=== PATIENT | female | born 1950 | race Caucasian/White ===

== ENCOUNTER → 2020-12-21 11:37 | Outpatient (CLI) | payer MEDICARE, OTHER, SELFPAY ==
--- NOTE | 2020-12-21 11:40 | DI.RAD.S_ITS ---
PROCEDURE: XR FINGER RT MIN 2V INDICATIONS: right 5th finger injury TECHNIQUE: AP hand, 2 views of the pinky finger(s) acquired. COMPARISON: None. FINDINGS: Overlying metal braces obscure the distal forearm and proximal carpus. Bones: No acute appearing fracture or traumatic malalignment. A small corticated ossific body along the dorsal aspect of the 5th proximal interphalangeal joint may reflect sequela of remote avulsive trauma or an osteophyte fragment. No suspicious bony lesions. Joint space narrowing of the 1st carpometacarpal joint, 1st interphalangeal joint, and the 2nd through 5th distal interphalangeal joints. Soft tissues: No suspicious soft tissue calcifications. IMPRESSION: No acute bony abnormality. Degenerative changes of the hand. Dictated by: Marbin Bach M.D. on 12/21/2020 at 11:07 Approved by: Marbin Bach M.D. on 12/21/2020 at 11:10
== END ==
PROVIDERS: Referring Provider Physician Assistant; Visit Provider Physician Assistant
DX: S69.91XA Unspecified injury of right wrist, hand and finger(s), initial encounter (principal); X58.XXXA Exposure to other specified factors, initial encounter
CPT/HCPCS: 73140

== ENCOUNTER 2021-09-10 14:16 | Emergency (ER) | payer MEDICARE, OTHER, SELFPAY ==
[2021-09-10 14:30] VITALS: BP 185/96; PULSE 66; RESP 20; TEMP 36.6; O2SAT 99
--- NOTE | 2021-09-10 14:34 | DI.RAD.S_ITS ---
PROCEDURE: XR RIBS LT MIN 3V W CXR1V INDICATIONS: fall TECHNIQUE: 2 views of the left ribs were acquired, along with a single view chest. COMPARISON: None. FINDINGS: Surgical changes and devices: None. Bones and chest wall: Mildly displaced left anterolateral 9th and 10th rib fractures. No suspicious bony lesions. Overlying soft tissues appear unremarkable. Lungs and pleura: No pleural effusions or pneumothorax. Lungs appear clear. Mediastinum: Mediastinal contours appear normal. Heart size is normal. IMPRESSION: Left rib fractures. No acute cardiopulmonary process. Dictated by: Colt Anguiano M.D. on 09/10/2021 at 14:57 Approved by: Colt Anguiano M.D. on 09/10/2021 at 14:58
--- NOTE | 2021-09-10 15:51 | ED_ITS ---
HPI - General Adult General Chief complaint: Trauma Stated complaint: Left sided rib pain from fall x3days Time Seen by Provider: 09/10/21 15:51 Source: patient Mode of arrival: Ambulatory History of Present Illness HPI narrative: 70-year-old woman with a history of hypothyroidism who fell on Wednesday, 3 days ago, landing on the stairs with the posterior portion of her left ribs. She had immediate pain but has been doing well in the interval. She actually flew across the country yesterday and is currently visiting her son here in town. She is having increasing pain and 800 mg of ibuprofen is no longer effective in controlling the pain. She was worried that there was perhaps more injury or other issues in comes in for further evaluation. She does not describe palpitations, fevers, dyspnea beyond that associated when she has acute pain, no spine pain, abdominal pain, constipation, hematuria, flank pain, dysuria. No acute neurologic changes. Related Data Home Medications Medication Instructions Recorded Confirmed levothyroxine 25 mcg tablet 25 mcg PO DAILY 12/21/20 12/21/20 (Synthroid) Previous Rx's Medication Instructions Recorded oxycodone-acetaminophen 5 mg-325 1 tab PO Q6H PRN #14 tab 09/10/21 mg tablet Allergies Allergy/AdvReac Type Severity Reaction Status Date / Time codeine Allergy Verified 09/10/21 16:14 Sulfa (Sulfonamide Allergy Verified 09/10/21 16:14 Antibiotics) Review of Systems Review of Systems Narrative: Remainder of complete review of systems is otherwise unremarkable except for that included in the HPI. Patient History Medical History (Updated 09/10/21 @ 16:19 by Anne Marie Ordonez MD) Hypothyroidism (acquired) Social History Smoking Status: Former smoker Smoking Status: Former smoker Exam Narrative Exam Narrative: General: Healthy appearing, in mild distress due to pain. Able to give a complete and coherent history. Well-nourished well-developed HEENT: Moist mucous membranes, normal sclera with reactive pupils, Respiratory: Lungs are clear to auscultation, no wheezing no rales no rhonchi. Full and symmetrical air movement Chest: He tenderness along lower ribs left side posterior axillary line. She has quite a bit of bruising posteriorly between the 9th and 10th ribs with minor abrasion. There is some minor abrasion over the lumbar spine. She has no tenderness to palpation along the cervical, thoracic or lumbar spine. Cardiac: Regular rate and rhythm no murmurs no bruits Abdomen: Soft, nontender, good bowel tones, no flank pain Skin: Warm and dry, no rashes be on the abrasions and contusions mentioned above Neurologic: Grossly neurologically intact with no obvious asymmetries or abnormalities Extremities: No trauma, well perfused, she is able to walk with minimal difficulty Psych: Cooperative, appropriate insight and affect Initial Vital Signs Initial Vital Signs: Vital Signs Temperature 97.8 F 09/10/21 14:30 Pulse Rate 66 09/10/21 14:30 Respiratory Rate 20 09/10/21 14:30 Blood Pressure 185/96 H 09/10/21 14:30 Pulse Oximetry 99 09/10/21 14:30 Course Orders Ordered: ED Orders 09/10/21 14:34 XR ribs LT min 3V w CXR1V Stat Vital Signs Vital signs: Vital Signs - 8 hr 09/10/21 14:30 Temperature 97.8 F Pulse Rate 66 Respiratory Rate 20 Blood Pressure 185/96 H Pulse Oximetry 99 Medical Decision Making Imaging Data Chest x-ray with rib films: Radiologist's Impression: FINDINGS:? ? Surgical changes and devices:? None.? ? Bones and chest wall:? Mildly displaced left anterolateral 9th and 10th rib fractures.? No suspicious bony lesions.? Overlying soft tissues appear unremarkable.? ? Lungs and pleura:? No pleural effusions or pneumothorax.? Lungs appear clear.? ? Mediastinum:? Mediastinal contours appear normal.? Heart size is normal.? ? IMPRESSION:? Left rib fractures.? No acute cardiopulmonary process.? ? ? Dictated by: Colt Anguiano M.D. on 09/10/2021 at 14:57? ?? [facility] Narrative Medical decision making narrative: 70-year-old woman with a fall 4 days ago landing on left posterior ribs with simple rib fractures to left side posterior ribs 9 and 10. No associated pneumothorax or hemothorax. No pulmonary contusion is obvious. She does have significant bruising to that area which she had not noticed previously and likely explains why she is having more pain today. I suspect that the cross- country plane trip yesterday exacerbated her symptoms somewhat. She is having no symptoms of acute coronary syndrome or pulmonary embolism. We talked about using narcotic for pain control with rib fractures, importance of incentive spirometry and return is symptoms worsen. Questions were answered. She is safe for home discharge Discharge Plan Departure Patient Disposition: Home Clinical Impression: Fall down stairs Fracture, ribs Qualifiers: Encounter type: initial encounter Fracture type: closed Laterality: left Qualified Code(s): S22.42XA - Multiple fractures of ribs, left side, initial encounter for closed fracture Instructions: DI for Rib Fracture Activity Restrictions/Additional Instructions: Thank you for coming in today You did break 2 ribs with your fall 4 days ago. Fortunately you do not have a collapsed lung or blood leaking in to your chest cavity. There is no evidence of compression fractures along your spine or other internal injury. It is common for rib fractures to h hurt more over the 1st number of days. I suspect that you irritated the fractures with your cross-country plane trip yesterday and that may have caused a slight increase in bleeding which is why receiving the bruising so obviously today. This would also explain wire hurting more today than yesterday. All of this is still with in completely normal limits for healing after rib fractures. Please make sure you are using the incentive spirometer with 2 or 3 big breaths and our to avoid allowing your lung to collapse and putting herself at risk for developing pneumonia Using 400 mg of ibuprofen (2 [id number] pills) and 1 Tylenol every 6 hours can be very helpful in controlling pain. For severe pain using 400 mg of ibuprofen and 1 Percocet will be helpful. Percocet is a narcotic and needs to be used sparingly. Severe pain from rib fractures is a very appropriate use for this. It can cause constipation so I encourage you to use full cap full, 17 g, of MiraLax/polyethylene glycol every day that you take a Percocet. Prevent constipation can make a huge difference in seeing comfortable and treating pain. The pain pill [facility] If you have new or worsening symptoms, you need to return to the emergency department I hope the rest of your visit goes well Prescriptions: New oxycodone-acetaminophen 5-325 mg tablet 1 tab PO Q6H PRN (Reason: pain) Qty: 14 0RF No Action levothyroxine [Synthroid] 25 mcg tablet 25 mcg PO DAILY 0RF Referrals: Miscellaneous,Doctor, MD [Primary Care Provider] -
[2021-09-10] MEDS: IBUPROFEN 400 MG TABLET PO (16:14)
[2021-09-10] MEDS: OXYCODONE/ACETAMINOPHEN 5/325 TABLET 1 TAB PO (16:14)
[2021-09-10 16:40] VITALS: BP 166/76; PULSE 78; RESP 17; O2SAT 98
== END 2021-09-10 16:42 | disposition home or self-care (01) ==
PROVIDERS: Emergency Provider Emergency Medicine
DX: S22.42XA Multiple fractures of ribs, left side, initial encounter for closed fracture (principal); Z87.891 Personal history of nicotine dependence; Z88.5 Allergy status to narcotic agent; W19.XXXA Unspecified fall, initial encounter
CPT/HCPCS: 71101; 99283

== ENCOUNTER → 2022-03-11 13:00 | Outpatient (CLI) | payer MEDICARE, OTHER, SELFPAY ==
--- NOTE | 2022-03-11 | DI.MRI.S_ITS ---
PROCEDURE: MR HUMERUS RT WO CON INDICATIONS: Strain of muscle, fascia and tendon of triceps, TECHNIQUE: Noncontrast coronal and sagittal T1 spin echo and STIR; axial T1 spin echo and T2 fast spin echo with fat saturation through the right upper arm. COMPARISON: None. FINDINGS: Image quality: Excellent. Bones: Mild to moderate glenohumeral joint osteoarthritic changes are seen. Moderate acromioclavicular joint osteoarthritic changes also noted. There is no marrow edema. No fracture or dislocation. No suspicious intraosseous lesion. Nmoi-ri-zxwytfjy elbow joint osteoarthritic changes also seen with joint space narrowing and subchondral sclerosis. Soft tissues: The scanned muscles demonstrate normal overall bulk and internal signal. Mildly thickened distal triceps tendon at its insertion on posterior proximal olecranon is seen with small amount of surrounding soft tissue edema suggestive of tendinosis and low-grade partial-thickness tear. No triceps muscle signal abnormality is seen. Subcutaneous tissues appear normal as well. No soft tissue masses are present. IMPRESSION: 1. Distal triceps tendinosis and possible low-grade partial-thickness tear at its proximal olecranon insertion. No full-thickness tendon rupture. No triceps muscle signal abnormality is seen. Rest of the tendons and muscles of right upper arm or grossly intact. 2. 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 No fracture or dislocation. No suspicious intraosseous lesion. Dictated by: Jem Berg M.D. on 03/11/2022 at 14:41 Approved by: Jem Berg M.D. on 03/11/2022 at 16:45
== END ==
PROVIDERS: Referring Provider Orthopaedic Surgery; Visit Provider Orthopaedic Surgery
DX: S46.311A Strain of muscle, fascia and tendon of triceps, right arm, initial encounter (principal); M19.011 Primary osteoarthritis, right shoulder
CPT/HCPCS: 73218

== ENCOUNTER → 2022-03-24 07:28 | Outpatient (CLI) | payer MEDICARE, OTHER, SELFPAY ==
[2022-03-24 08:32] LABS: Add Manual Diff / Slide Review NO; Basophils Absolute Auto 0 /uL (0-100); Basophils Percent Auto 1.3 % (0-2); Eosinophils Absolute Auto 300 /uL (0-450); Eosinophils Percent Auto 7.8 % (2-4); Hematocrit 39.8 % (36-46); Hemoglobin 13.7 g/dL (12.0-16.0); Lymphocytes Absolute Auto 700 /uL (1100-4500); Lymphocytes Percent Auto 19.7 % (25-40); Mean Corpuscular HGB Conc 34.4 % (30-36); Mean Corpuscular Hemoglobin 30.3 PG (26-34); Mean Corpuscular Volume 88.3 fL (80-100); Monocytes Absolute Auto 500 /uL (0-900); Monocytes Percent Auto 13.4 % (3-14); Neutrophils Absolute Auto 2200 /uL (1500-7000); Neutrophils Percent Auto 57.8 % (50-75); Platelet Count 190 X10^3/uL (150-400); Red Cell Distribution Width 13.5 % (11.6-14.8); White Blood Cell Count 3.7 X10^3/uL (4.5-11.0)
[2022-03-24 09:13] LABS: Alanine Aminotransferase 22 IU/L (<35); Albumin Globulin Ratio 1.4 (1.0-2.8); Alkaline Phosphatase 63 U/L (38-126); Aspartate Aminotransferase 27 IU/L (14-36); BUN Creatinine Ratio 28.2 (6-22); Bilirubin Total 0.7 mg/dL (0.2-1.3); Blood Urea Nitrogen 20 mg/dL (7-17); Calcium 9.2 mg/dL (8.4-10.2); Carbon Dioxide 30 mmol/L (22-32); Chloride 102 mmol/L (98-107); Cholesterol 179 mg/dL (140-199); Estimated Glomerular Filt Rate > 60 mL/min (>60); Globulin 2.9 g/dL (1.7-4.1); Glucose 104 mg/dL (80-110); HDL Cholesterol 53 mg/dL (40-60); HEMOLYSIS < 15 (0-50); LDL Cholesterol Calculated 111 mg/dL (<100); Potassium 4.3 mmol/L (3.4-5.1); Sodium 137 mmol/L (137-145); Total Protein 6.9 g/dL (6.3-8.2); Triglycerides 74 mg/dL (35-150)
[2022-03-24 09:40] LABS: TSH w/ Reflex to FT4 1.25 uIU/mL (0.47-4.68)
== END ==
PROVIDERS: PCP Family Medicine; Referring Provider Family Medicine; Visit Provider Family Medicine
DX: E03.9 Hypothyroidism, unspecified (principal); Z86.19 Personal history of other infectious and parasitic diseases
CPT/HCPCS: 36415; 80053; 80061; 84443; 85025

== ENCOUNTER → 2022-08-17 06:58 | Outpatient (CLI) | payer MEDICARE, OTHER, SELFPAY ==
[2022-08-17 17:03] LABS: Hep C Virus Ab w/Reflex Quant NEGATIVE s/c (NEGATIVE)
== END ==
PROVIDERS: PCP Family Medicine; Referring Provider Family Medicine; Visit Provider Family Medicine
DX: D72.810 Lymphocytopenia (principal); E03.9 Hypothyroidism, unspecified; Z11.59 Encounter for screening for other viral diseases
CPT/HCPCS: 36415; 86803

== ENCOUNTER → 2022-12-20 12:12 | Outpatient (CLI) | payer MEDICARE, OTHER, SELFPAY ==
--- NOTE | 2022-12-20 12:14 | DI.RAD.S_ITS ---
PROCEDURE: XR CHEST 2V INDICATIONS: Cough TECHNIQUE: 2 views of the chest were acquired. COMPARISON: None. FINDINGS: Surgical changes and devices: None. Lungs and pleura: Lungs are clear. No pleural effusions or pneumothorax. Mediastinum: The cardiac contours are within normal limits. The aorta demonstrates calcification and tortuosity. Bones and chest wall: No suspicious bony abnormalities. Age-appropriate bony degenerative changes are seen. Soft tissues appear unremarkable. IMPRESSION: No focal infiltrates are seen. Dictated by: Keith Jarquin M.D. on 12/20/2022 at 11:38 Approved by: Keith Jarquin M.D. on 12/20/2022 at 11:38
== END ==
PROVIDERS: PCP Family Medicine; Referring Provider Physician Assistant; Visit Provider Physician Assistant
DX: R05.9 Cough, unspecified (principal)
CPT/HCPCS: 71046

== ENCOUNTER → 2022-12-23 07:49 | Outpatient (CLI) | payer MEDICARE, OTHER, SELFPAY ==
[2022-12-23 08:30] LABS: Add Manual Diff / Slide Review NO; Basophils Absolute Auto 100 /uL (0-100); Basophils Percent Auto 1.2 % (0-2); Eosinophils Absolute Auto 700 /uL (0-450); Eosinophils Percent Auto 11.8 % (2-4); Hematocrit 40.6 % (36-46); Hemoglobin 14.1 g/dL (12.0-16.0); Lymphocytes Absolute Auto 700 /uL (1100-4500); Mean Corpuscular HGB Conc 34.8 % (30-36); Mean Corpuscular Hemoglobin 30.7 PG (26-34); Mean Corpuscular Volume 88.3 fL (80-100); Monocytes Absolute Auto 700 /uL (0-900); Monocytes Percent Auto 12.8 % (3-14); Neutrophils Absolute Auto 3400 /uL (1500-7000); Neutrophils Percent Auto 61.2 % (50-75); Platelet Count 213 X10^3/uL (150-400); Red Cell Distribution Width 13.1 % (11.6-14.8); White Blood Cell Count 5.6 X10^3/uL (4.5-11.0)
[2022-12-23 09:28] LABS: Alanine Aminotransferase 20 IU/L (<35); Albumin 4.1 g/dL (3.5-5.0); Albumin Globulin Ratio 1.3 (1.0-2.8); Alkaline Phosphatase 69 U/L (38-126); Aspartate Aminotransferase 23 IU/L (14-36); BUN Creatinine Ratio 23.8 (6-22); Bilirubin Total 0.4 mg/dL (0.2-1.3); Blood Urea Nitrogen 19 mg/dL (7-17); Calcium 9.3 mg/dL (8.4-10.2); Carbon Dioxide 27 mmol/L (22-32); Chloride 95 mmol/L (98-107); Cholesterol 212 mg/dL (140-199); Estimated Glomerular Filt Rate > 60 mL/min (>60); Globulin 3.1 g/dL (1.7-4.1); Glucose 92 mg/dL (80-110); HDL Cholesterol 50 mg/dL (40-60); HEMOLYSIS < 15 (0-50); LDL Cholesterol Calculated 130 mg/dL (<100); Potassium 4.4 mmol/L (3.4-5.1); Sodium 130 mmol/L (137-145); Total Protein 7.2 g/dL (6.3-8.2); Triglycerides 161 mg/dL (35-150)
[2022-12-23 10:00] LABS: TSH w/ Reflex to FT4 5.47 uIU/mL (0.47-4.68)
[2022-12-23 10:06] LABS: Vitamin D 25 Hydroxy (D3) 36.8 ng/mL (30.0-100.0)
[2022-12-23 11:27] LABS: Free T4, Direct Thyroxine 1.24 ng/dL (0.78-2.19)
[2022-12-23 19:52] LABS: Creatinine Urine Random 136.4 mg/dL
[2022-12-23 19:56] LABS: Microalbumi Creatinin Ratio Ur 5.8 ug/mg CR (<30); Microalbumin Urine Random 0.8 mg/dL (0-1.6)
== END ==
PROVIDERS: PCP Family Medicine; Referring Provider Family Medicine; Visit Provider Family Medicine
DX: Z00.00 Encounter for general adult medical examination without abnormal findings (principal); E03.9 Hypothyroidism, unspecified; D72.810 Lymphocytopenia; E78.5 Hyperlipidemia, unspecified; D72.819 Decreased white blood cell count, unspecified; E78.2 Mixed hyperlipidemia
CPT/HCPCS: 36415; 80053; 80061; 82043; 82306; 82570; 84439; 84443; 85025

== ENCOUNTER → 2023-06-15 13:59 | Outpatient (CLI) | payer MEDICARE, OTHER, SELFPAY ==
[2023-06-15 15:38] LABS: TSH w/ Reflex to FT4 2.14 uIU/mL (0.47-4.68)
== END ==
PROVIDERS: PCP Family Medicine; Referring Provider Internal Medicine; Visit Provider Internal Medicine
DX: E03.9 Hypothyroidism, unspecified (principal)
CPT/HCPCS: 36415; 84443

== ENCOUNTER → 2023-10-14 06:59 | Outpatient (CLI) | payer MEDICARE, OTHER, SELFPAY ==
[2023-10-14 08:04] LABS: Add Manual Diff / Slide Review NO; Alanine Aminotransferase 20 IU/L (<35); Albumin 4.1 g/dL (3.5-5.0); Albumin Globulin Ratio 1.2 (1.0-2.8); Alkaline Phosphatase 54 U/L (38-126); Aspartate Aminotransferase 25 IU/L (14-36); BUN Creatinine Ratio 35.6 (6-22); Basophils Absolute Auto 100 /uL (0-100); Basophils Percent Auto 2.5 % (0-2); Bilirubin Total 0.7 mg/dL (0.2-1.3); Blood Urea Nitrogen 26 mg/dL (7-17); Calcium 9.5 mg/dL (8.4-10.2); Carbon Dioxide 26 mmol/L (22-32); Chloride 105 mmol/L (98-107); Cholesterol 255 mg/dL (140-199); Eosinophils Absolute Auto 400 /uL (0-450); Eosinophils Percent Auto 10.8 % (2-4); Estimated Glomerular Filt Rate > 60 mL/min (>60); Globulin 3.5 g/dL (1.7-4.1); Glucose 107 mg/dL (80-110); HDL Cholesterol 53 mg/dL (40-60); HEMOLYSIS < 15 (0-50); Hematocrit 41.7 % (36-46); Hemoglobin 14.6 g/dL (12.0-16.0); LDL Cholesterol Calculated 182 mg/dL (<100); Lymphocytes Absolute Auto 900 /uL (1100-4500); Lymphocytes Percent Auto 25.7 % (25-40); Mean Corpuscular HGB Conc 35.1 % (30-36); Mean Corpuscular Hemoglobin 31.1 PG (26-34); Mean Corpuscular Volume 88.7 fL (80-100); Monocytes Absolute Auto 400 /uL (0-900); Monocytes Percent Auto 12.5 % (3-14); Neutrophils Absolute Auto 1600 /uL (1500-7000); Neutrophils Percent Auto 48.5 % (50-75); Platelet Count 180 X10^3/uL (150-400); Potassium 4.2 mmol/L (3.4-5.1); Red Cell Distribution Width 13.6 % (11.6-14.8); Sodium 137 mmol/L (137-145); Total Protein 7.6 g/dL (6.3-8.2); Triglycerides 99 mg/dL (35-150); White Blood Cell Count 3.3 X10^3/uL (4.5-11.0)
[2023-10-14 08:21] LABS: Vitamin D 25 Hydroxy (D3) 45.9 ng/mL (30.0-100.0)
[2023-10-14 08:35] LABS: TSH w/ Reflex to FT4 2.58 uIU/mL (0.47-4.68)
[2023-10-14 09:54] LABS: Creatinine Urine Random 86.1 mg/dL
[2023-10-14 09:59] LABS: Microalbumin Urine Random < 0.6 mg/dL (0-1.6)
[2023-10-15 07:10] LABS: Apolipoprotein B 132 mg/dL (<90)
== END ==
PROVIDERS: PCP Family Medicine; Referring Provider Family Medicine; Visit Provider Family Medicine
DX: Z00.00 Encounter for general adult medical examination without abnormal findings (principal); D72.810 Lymphocytopenia; E03.9 Hypothyroidism, unspecified; E78.5 Hyperlipidemia, unspecified; D72.819 Decreased white blood cell count, unspecified
CPT/HCPCS: 36415; 80053; 80061; 82043; 82172; 82306; 82570; 84443; 85025

== ENCOUNTER 2023-11-16 21:22 | Emergency (ER) | payer MEDICARE, OTHER, SELFPAY ==
[2023-11-16 21:38] VITALS: BP 154/72; PULSE 84; RESP 16; TEMP 37.1; O2SAT 99; BMI 27.4
--- NOTE | 2023-11-16 21:43 | DI.RAD.S_ITS ---
PROCEDURE: XR CHEST 1V INDICATIONS: cough TECHNIQUE: One view of the chest was acquired. COMPARISON: [facility], CR, XR CHEST 2V, 12/20/2022, 12:12. FINDINGS: Surgical changes and devices: None. Lungs and pleura: Lungs are clear. No pleural effusions or pneumothorax. Mediastinum: Mediastinal contours appear normal. Heart size is normal. Bones and chest wall: No suspicious bony lesions. Overlying soft tissues appear unremarkable. IMPRESSION: No acute cardiopulmonary abnormality is seen. Dictated by: Aldo Trimble M.D. on 11/16/2023 at 22:28 Approved by: Aldo Trimble M.D. on 11/16/2023 at 22:28
[2023-11-16 22:53] LABS: Influenza A - CEPHEID Flu A NEGATIVE (NEGATIVE); Influenza B - CEPHEID Flu B NEGATIVE (NEGATIVE); Respiratory Syncytial Virus Negative (Negative)
[2023-11-16 23:18] LABS: COVID-19 CEPHEID 4-PLEX PCR POSITIVE (Negative)
[2023-11-16 23:31] VITALS: O2SAT 98
[2023-11-16 23:32] VITALS: BP 169/92; PULSE 98; O2SAT 98
[2023-11-16 23:33] VITALS: BP 178/82; PULSE 88; O2SAT 98
[2023-11-17] VITALS: BP 168/79; PULSE 72; O2SAT 97
[2023-11-17 00:30] VITALS: BP 143/75; PULSE 76; O2SAT 97
--- NOTE | 2023-11-17 00:52 | PC.NURSE ---
Pt reports having COVID earlier this month then all symptoms subsided for one week and then the cough began approximately 1 week ago. Pt went to [place] and diarrhea began a couple days ago. Provider made aware.
[2023-11-17 01:00] VITALS: BP 146/72; PULSE 72; O2SAT 97
[2023-11-17 01:04] LABS: Adenovirus F 40/41 Not Detected (Not Detect); Astrovirus Not Detected (Not Detect); Campylobacter Not Detected (Not Detect); Clostridium difficile toxin AB Not Detected (Not Detect); Cryptosporidium Not Detected (Not Detect); Cyclospora cayetanensis Not Detected (Not Detect); Entamoeba histolytica Not Detected (Not Detect); Enteroaggregative E.coli Not Detected (Not Detect); Enterotoxigenic E.coli It/st Not Detected (Not Detect); Giardia lamblia Not Detected (Not Detect); Norovirus GI/GII Not Detected (Not Detect); Plesiomonsa shigelloides Not Detected (Not Detect); Rotavirus A Not Detected (Not Detect); Salmonella Not Detected (Not Detect); Sapovirus Not Detected (Not Detect); Shiga-like toxin-prod E.coli Detected (Not Detect); Shigella/Enteroinvasive E.coli Not Detected (Not Detect); Vibrio Not Detected (Not Detect); Vibrio cholerae Not Detected (Not Detect); Yersinia enterocolitica Not Detected (Not Detect)
[2023-11-17 01:33] VITALS: PULSE 75; O2SAT 93
--- NOTE | 2023-11-17 01:45 | ED_ITS ---
HPI - General Adult General Chief complaint: Upper Respiratory Symptoms Stated complaint: thinks pneumonia, just got back from [place] Time Seen by Provider: 11/16/23 23:06 Source: patient Mode of arrival: Ambulatory History of Present Illness HPI narrative: 73-year-old female who is here for evaluation of a cough, diarrhea, concern for pneumonia. Recent travel back from [place]. No fevers. Nonproductive cough. Is having problems breathing. Prior to going to [place] she was diagnosed with COVID. Took Paxlovid. Had 2- test prior to going to [place]. She started having diarrhea shortly after arriving. Has had multiple episodes a day. No blood in the stool. No vomiting. No skin rashes. Has not tried anything for the symptoms prior to arrival. Related Data Previous Rx's Medication Instructions Recorded albuterol sulfate 90 mcg/actuation 2 puff inhalation Q4-6H PRN 12/20/22 aerosol inhaler shortness of breath or wheezing #6.7 grams fluticasone propionate 100 1 inh inhalation BID #60 ea 12/20/22 mcg/actuation blister powder for inhalation (Flovent Diskus) levothyroxine 150 mcg tablet 150 mcg PO DAILY #90 tabs 08/03/23 (Synthroid) nirmatrelvir 300 mg (150 mg See Rx Instructions PO .COMPLEX 10/28/23 x2)-ritonavir 100 mg tablet,dose #30 ea pack (Paxlovid) rosuvastatin 5 mg tablet (Crestor) 5 mg PO DAILY #30 tabs 10/28/23 hydrochlorothiazide 25 mg tablet 25 mg PO DAILY #90 tabs 11/05/23 benzonatate 100 mg capsule 100 mg PO BID-TID PRN cough #14 11/17/23 caps Allergies Allergy/AdvReac Type Severity Reaction Status Date / Time codeine Allergy Swelling Verified 11/16/23 21:38 of Lip/Tongue/Throat Sulfa (Sulfonamide AdvReac Thrush Verified 11/16/23 21:38 Antibiotics) Review of Systems Review of Systems ROS Unobtainable: All systems reviewed & are unremarkable except as noted in HPI and below Patient History Medical History Osteopenia Leukocytopenia Neoplasm of uncertain behavior of skin Asthma Allergies Fractures Hepatitis (~1989) Hypothyroidism (acquired) (~1995) Surgical History Anesthesia History of surgery on lower extremity S/P rotator cuff repair (~2000) Family History Father Suicide Mother Breast cancer Skin cancer History of heart disease Grandfather Alzheimer's disease Grandmother History of heart disease Grandfather Stroke Family/Other Skin cancer Social History Smoking Status: Former smoker Smoking Status: Former smoker alcohol intake frequency: a few times a week Alcohol type: wine Substance Use Type: does not use Exam Initial Vital Signs Initial Vital Signs: Vital Signs Temperature 98.7 F 11/16/23 21:38 Pulse Rate 84 11/16/23 21:38 Respiratory Rate 16 11/16/23 21:38 Blood Pressure 154/72 H 11/16/23 21:38 Pulse Oximetry 99 11/16/23 21:38 Oxygen Delivery Method Room Air 11/16/23 21:38 Const General: cooperative, comfortable and No ill appearing HENOH Head: normal to inspection and normocephalic Resp Effort & Inspection: normal respiratory effort Cardio Rate: regular rate GI Inspection: normal to inspection Skin General: no rashes or lesions noted Neuro General: patient alert, patient awake and moves all extremities Extrem General: normal to inspection and capillary refill normal Course Orders Ordered: ED Orders 11/16/23 21:43 XR chest 1V Stat 11/16/23 22:11 Covid-19 + FLU A/B + RSV - PCR Stat 11/16/23 23:34 GI Panel (Film Array) Stat Discontinued Medications Benzonatate (Benzonatate 100 Mg Capsule) 100 mg PO NOW ONE Stop: 11/17/23 01:47 Last Admin: 11/17/23 01:57 Dose: 100 mg Documented By: ADIA Vital Signs Vital signs: Vital Signs - 8 hr 11/16/23 21:38 11/16/23 23:31 11/16/23 23:32 Temperature 98.7 F Pulse Rate 84 98 H Respiratory Rate 16 Blood Pressure 154/72 H Pulse Oximetry 99 98 98 Oxygen Delivery Method Room Air 11/16/23 23:32 11/16/23 23:33 11/16/23 23:33 Temperature Pulse Rate 88 Respiratory Rate Blood Pressure 169/92 H 178/82 H Pulse Oximetry 98 Oxygen Delivery Method 11/17/23 00:00 11/17/23 00:00 11/17/23 00:30 Temperature Pulse Rate 72 Respiratory Rate Blood Pressure 168/79 H 143/75 H Pulse Oximetry 97 Oxygen Delivery Method 11/17/23 00:30 11/17/23 01:00 11/17/23 01:00 Temperature Pulse Rate 76 72 Respiratory Rate Blood Pressure 146/72 H Pulse Oximetry 97 97 Oxygen Delivery Method Room Air Room Air 11/17/23 01:33 11/17/23 02:02 Temperature 97.9 F Pulse Rate 75 Respiratory Rate Blood Pressure Pulse Oximetry 93 Oxygen Delivery Method Room Air Medical Decision Making Lab Data Lab results reviewed: Yes I reviewed the patient's lab results. Labs: Lab Results 11/16/23 11/16/23 Range/Units 22:11 23:34 Stl C. cayetanensis PCR Not detected (Not Detect) Stool Rotavirus (PCR) Not detected (Not Detect) Stool Adenovirus (PCR) Not detected (Not Detect) Stool Astrovirus (PCR) Not detected (Not Detect) Stool Cryptosporidium PCR Not detected (Not Detect) Stl E.coli Shiga Tox PCR Detected (Not Detect) St Sh/Enteroin Ecoli PCR Not detected (Not Detect) Stool E coli O157 PCR Not detected (Not Detect) Stl Enterotoxigenic E PCR Not detected (Not Detect) Stl E. histolytica PCR Not detected (Not Detect) Stool Giardia Lamblia PCR Not detected (Not Detect) Stool Sapovirus (PCR) Not detected (Not Detect) Stl P. shigelloides PCR Not detected (Not Detect) St Y.enterocolitica PCR Not detected (Not Detect) Stool Vibrio (PCR) Not detected (Not Detect) Stl Vibrio cholerae PCR Not detected (Not Detect) Stl Enteroaggr Ecoli PCR Not detected (Not Detect) Stl Norovirus GI/GII PCR Not detected (Not Detect) Campylobacter (PCR) Not detected (Not Detect) C. difficile Tox (PCR) Not detected (Not Detect) SARS-CoV-2 (PCR) Positive H (Negative) Influenza A (RT-PCR) Flu a negative (NEGATIVE) Influenza B (RT-PCR) Flu b negative (NEGATIVE) RSV (PCR) Negative (Negative) Salmonella (PCR) Not detected (Not Detect) Imaging Data Chest x-ray: Radiologist's Impression: PROCEDURE: XR CHEST 1V INDICATIONS: cough TECHNIQUE: One view of the chest was acquired. COMPARISON: [facility], CR, XR CHEST 2V, 12/20/2022, 12:12. FINDINGS: Surgical changes and devices: None. Lungs and pleura: Lungs are clear. No pleural effusions or pneumothorax. Mediastinum: Mediastinal contours appear normal. Heart size is normal. Bones and chest wall: No suspicious bony lesions. Overlying soft tissues appear unremarkable. IMPRESSION: No acute cardiopulmonary abnormality is seen. MDM Narrative Medical decision making narrative: Patient does have a positive COVID test today. Unsure whether or not this is a continuation of her prior COVID infection although she does report she had negative home test prior to going to [place]. This potentially a rebound because she did take Paxlovid. Were this is potentially a new infection. Regardless she was not hypoxic. There was no indication for antibiotics. She is shiga toxin producing E coli on her stool sample. Not clinically dehydrated. Is tolerating oral intake. No blood in her stool. No indication for antibiotics for this as well. Advised that she tried to avoid antidiarrheal medicines unless absolutely necessary. Will try to treat the cough with Tessalon Perles. Discharged home with return precautions. She expressed understanding and agreement. Discharge Plan Departure Patient Disposition: Home Clinical Impression: Shiga toxin-producing Escherichia coli (E. coli) (STEC), unspecified, COVID-19 Instructions: Diarrhea, COVID-19 Activity Restrictions/Additional Instructions: Continue to take all of your medications as directed. Be sure that you were increasing your fluid intake. Be sure you are washing your hands frequently. Follow all current CDC guidelines with regard to quarantine and COVID-19. Return to the emergency department for new or worsening symptoms. Prescriptions: New benzonatate 100 mg capsule 100 mg PO BID-TID PRN (Reason: cough) Qty: 14 0RF No Action Flovent Diskus 100 mcg/actuation blister with device 1 inh inhalation BID Qty: 60 0RF Rx Instructions: Wash mouth out after use albuterol sulfate 90 mcg/actuation HFA aerosol inhaler 2 puff inhalation Q4-6H PRN (Reason: shortness of breath or wheezing) Qty: 6.7 0RF levothyroxine [Synthroid] 150 mcg tablet 150 mcg PO DAILY Qty: 90 3RF rosuvastatin [Crestor] 5 mg tablet 5 mg PO DAILY Qty: 30 0RF Paxlovid 300 mg (150 mg x 2)-100 mg tablets,dose pack See Rx Instructions PO .COMPLEX Qty: 30 0RF Rx Instructions: take TWO 150 mg tablets of nirmatrelvir with ONE 100 mg tablet of ritonavir twice daily for 5 days PO hydrochlorothiazide 25 mg tablet 25 mg PO DAILY Qty: 90 3RF Referrals: Josh Head MD [Primary Care Provider] - Stand Alone Forms: Patient Portal/API
[2023-11-17] MEDS: BENZONATATE 100 MG CAPSULE PO (01:57)
[2023-11-17 02:02] VITALS: TEMP 36.6
== END 2023-11-17 02:03 | disposition home or self-care (01) ==
PROVIDERS: Emergency Provider Emergency Medicine; PCP Family Medicine
DX: U07.1 COVID-19 (principal); R19.7 Diarrhea, unspecified; B96.23 Unspecified Shiga toxin-producing Escherichia coli [E. coli] [STEC] as the cause of diseases classified elsewhere
CPT/HCPCS: 0241U; 71045; 87507; 99283

== ENCOUNTER → 2023-11-29 08:19 | Outpatient (CLI) | payer MEDICARE, OTHER, SELFPAY ==
--- NOTE | 2023-11-29 08:21 | DI.RAD.S_ITS ---
PROCEDURE: XR CHEST 2V INDICATIONS: cough, shortness of breath TECHNIQUE: 2 views of the chest were acquired. COMPARISON: [facility], CR, XR CHEST 1V, 11/16/2023, 22:10. [facility], CR, XR CHEST 2V, 12/20/2022, 12:12. FINDINGS: Surgical changes and devices: None. Lungs and pleura: Lungs are clear. No pleural effusions or pneumothorax. Mediastinum: Mediastinal contours are normal. Heart size is normal. Bones and chest wall: No suspicious bony abnormalities. Soft tissues appear unremarkable. IMPRESSION: No acute cardiopulmonary abnormality is seen. Dictated by: Aldo Trimble M.D. on 11/29/2023 at 9:53 Approved by: Aldo Trimble M.D. on 11/29/2023 at 9:53
[2023-11-29 10:29] LABS: Add Manual Diff / Slide Review NO; Basophils Absolute Auto 100 /uL (0-100); Basophils Percent Auto 1.4 % (0-2); Eosinophils Absolute Auto 600 /uL (0-450); Eosinophils Percent Auto 8.2 % (2-4); Hematocrit 41.9 % (36-46); Lymphocytes Absolute Auto 1200 /uL (1100-4500); Lymphocytes Percent Auto 16.5 % (25-40); Mean Corpuscular HGB Conc 35.7 % (30-36); Mean Corpuscular Hemoglobin 31.7 PG (26-34); Mean Corpuscular Volume 88.7 fL (80-100); Monocytes Absolute Auto 800 /uL (0-900); Monocytes Percent Auto 11.2 % (3-14); Neutrophils Absolute Auto 4400 /uL (1500-7000); Neutrophils Percent Auto 62.7 % (50-75); Platelet Count 285 X10^3/uL (150-400); Red Blood Cell Count 4.72 X10^6/uL (4.0-5.2); Red Cell Distribution Width 13.4 % (11.6-14.8)
[2023-11-29 10:57] LABS: Alanine Aminotransferase 19 IU/L (<35); Albumin 4.4 g/dL (3.5-5.0); Albumin Globulin Ratio 1.2 (1.0-2.8); Alkaline Phosphatase 60 U/L (38-126); Aspartate Aminotransferase 23 IU/L (14-36); BUN Creatinine Ratio 19.3 (6-22); Bilirubin Total 0.7 mg/dL (0.2-1.3); Blood Urea Nitrogen 16 mg/dL (7-17); Calcium 9.7 mg/dL (8.4-10.2); Carbon Dioxide 27 mmol/L (22-32); Chloride 101 mmol/L (98-107); Estimated Glomerular Filt Rate > 60 mL/min (>60); Globulin 3.8 g/dL (1.7-4.1); Glucose 85 mg/dL (80-110); HEMOLYSIS < 15 (0-50); Potassium 4.4 mmol/L (3.4-5.1); Sodium 136 mmol/L (137-145); Total Protein 8.2 g/dL (6.3-8.2)
== END ==
PROVIDERS: PCP Family Medicine; Referring Provider Family Medicine; Visit Provider Family Medicine
DX: U07.1 COVID-19 (principal); A49.8 Other bacterial infections of unspecified site; J45.909 Unspecified asthma, uncomplicated
CPT/HCPCS: 36415; 71046; 80053; 85025

== ENCOUNTER → 2024-02-23 11:56 | Outpatient (CLI) | payer MEDICARE, OTHER, SELFPAY ==
[2024-02-23 13:34] LABS: Add Manual Diff / Slide Review NO; Basophils Absolute Auto 100 /uL (0-100); Basophils Percent Auto 1.4 % (0-2); Eosinophils Absolute Auto 300 /uL (0-450); Eosinophils Percent Auto 6.6 % (2-4); Hemoglobin 14.4 g/dL (12.0-16.0); Lymphocytes Absolute Auto 900 /uL (1100-4500); Lymphocytes Percent Auto 20.9 % (25-40); Mean Corpuscular HGB Conc 35.1 % (30-36); Mean Corpuscular Hemoglobin 31.1 PG (26-34); Mean Corpuscular Volume 88.6 fL (80-100); Monocytes Absolute Auto 500 /uL (0-900); Monocytes Percent Auto 11.2 % (3-14); Neutrophils Absolute Auto 2500 /uL (1500-7000); Neutrophils Percent Auto 59.9 % (50-75); Platelet Count 178 X10^3/uL (150-400); Red Blood Cell Count 4.63 X10^6/uL (4.0-5.2); Red Cell Distribution Width 13.2 % (11.6-14.8); White Blood Cell Count 4.2 X10^3/uL (4.5-11.0)
[2024-02-23 13:58] LABS: Alanine Aminotransferase 18 IU/L (<35); Albumin 4.3 g/dL (3.5-5.0); Albumin Globulin Ratio 1.5 (1.0-2.8); Alkaline Phosphatase 55 U/L (38-126); Aspartate Aminotransferase 25 IU/L (14-36); BUN Creatinine Ratio 25.6 (6-22); Bilirubin Total 0.6 mg/dL (0.2-1.3); Blood Urea Nitrogen 20 mg/dL (7-17); Calcium 9.4 mg/dL (8.4-10.2); Carbon Dioxide 33 mmol/L (22-32); Chloride 104 mmol/L (98-107); Cholesterol 195 mg/dL (140-199); Estimated Glomerular Filt Rate > 60 mL/min (>60); Globulin 2.9 g/dL (1.7-4.1); Glucose 65 mg/dL (80-110); HDL Cholesterol 63 mg/dL (40-60); HEMOLYSIS < 15 (0-50); LDL Cholesterol Calculated 110 mg/dL (<100); Potassium 4.1 mmol/L (3.4-5.1); Sodium 139 mmol/L (137-145); Total Protein 7.2 g/dL (6.3-8.2); Triglycerides 111 mg/dL (35-150)
[2024-02-23 14:36] LABS: TSH w/ Reflex to FT4 0.93 uIU/mL (0.47-4.68)
== END ==
PROVIDERS: PCP Family Medicine; Referring Provider Family Medicine; Visit Provider Family Medicine
DX: D72.819 Decreased white blood cell count, unspecified (principal); E03.9 Hypothyroidism, unspecified; E78.5 Hyperlipidemia, unspecified; D72.810 Lymphocytopenia
CPT/HCPCS: 36415; 80053; 80061; 82172; 84443; 85025

== ENCOUNTER → 2024-03-13 11:28 | Outpatient (CLI) | payer MEDICARE, OTHER, SELFPAY | LOC: CAR 03-15 11:28 | PROVIDERS: PCP Family Medicine; Referring Provider Family Medicine; Visit Provider Family Medicine | DX: R00.2 Palpitations (principal) | CPT/HCPCS: 93246 ==

== ENCOUNTER 2024-07-06 18:38 | Emergency (ER) | payer MEDICARE, OTHER, SELFPAY ==
[2024-07-06 18:58] VITALS: BP 130/66; PULSE 66; RESP 17; TEMP 36.1; O2SAT 99; BMI 27.4
--- NOTE | 2024-07-06 19:05 | DI.RAD.S_ITS ---
PROCEDURE: XR HUMERUS LT 2V INDICATIONS: fall TECHNIQUE: 2 views of the humerus were acquired. COMPARISON: [facility], CR, XR SHOULDER 2+ VIEWS LEFT, 08/09/2023, 11:49. FINDINGS: Acute, comminuted, impacted proximal humeral surgical neck fracture with intra-articular extension to the tuberosities and humeral head. Mild inferior subluxation of the humerus relative to the glenoid, likely secondary to an underlying hemarthrosis. Evaluation of the inferior glenoid limited due to overlying fracture fragments. IMPRESSION: Acute, comminuted proximal humeral surgical neck fracture with intra-articular extension and a probable moderate hemarthrosis. Dictated by: Jorge Page M.D. on 07/06/2024 at 21:04 Approved by: Jorge Page M.D. on 07/06/2024 at 21:06
--- NOTE | 2024-07-06 19:06 | DI.RAD.S_ITS ---
PROCEDURE: XR SHOULDER LT MIN 2V INDICATIONS: fall TECHNIQUE: 2 views of the shoulder were acquired. COMPARISON: None. FINDINGS: Re-identified acute, comminuted, impacted proximal humeral fracture involving the surgical neck, humeral head, and the tuberosities. There is inferior subluxation of the humeral head relative to the glenoid, likely secondary to an underlying moderate hemarthrosis. Diffuse osseous demineralization. Aortic arch calcifications. Visualized left hemithorax otherwise within normal limits. IMPRESSION: Re-identified acute, comminuted, impacted proximal humeral fracture with intra-articular extension and probable moderate hemarthrosis. Dictated by: Jorge Page M.D. on 07/06/2024 at 21:06 Approved by: Jorge Page M.D. on 07/06/2024 at 21:07
[2024-07-06] MEDS: IBUPROFEN 400 MG TABLET 800 MG PO (19:11)
--- NOTE | 2024-07-06 22:16 | ED.UPPEXIN ---
HPI - Extremity Injury (Upper) General Chief Complaint: Extremity Injury, Upper Stated Complaint: GLF, injured shoulder Time Seen by Provider: 07/06/24 22:14 Source: patient, RN notes reviewed and old records reviewed Mode of arrival: Family Vehicle Limitations: no limitations History of Present Illness HPI narrative: 73-year-old female history of hypothyroidism, on hydrochlorothiazide, no anticoagulants who presents with complaint of ground level fall and left shoulder pain. Patient states she just tripped and fell. Denies hitting her head denies any neck or back pain, has pain in the shoulder. Pain with movement. No occasional some numbness tingling but not persistent in the left hand. No weakness or difficulty with movement of the fingers wrist. Patient is able to flex extend at the elbow as well. Denies any chest pain or shortness of breath. [place] little bit nauseated since the injury. No vomiting. No other GI or urinary symptoms reported. No other injuries reported. Former smoker, occasional alcohol, no recreational drugs. Dr. Head is her primary care physician. She is accompanied by her family. Patient notes allergy to codeine with swelling of the lips tongue and throat. Related Data Previous Rx's Medication Instructions Recorded levothyroxine 150 mcg tablet 150 mcg PO DAILY #90 tabs 08/03/23 (Synthroid) rosuvastatin 5 mg tablet (Crestor) 5 mg PO DAILY #30 tabs 10/28/23 hydrochlorothiazide 25 mg tablet 25 mg PO DAILY #90 tabs 11/05/23 inhalational spacing device #1 ea 11/23/23 (BreatheRite MDI Spacer) albuterol sulfate 90 mcg/actuation 2 puff inhalation Q4-6H PRN 12/31/23 aerosol inhaler shortness of breath or wheezing #6.7 grams benzonatate 100 mg capsule 100 mg PO BID-TID PRN cough #21 07/05/24 caps oxycodone 5 mg tablet 5 mg PO QID PRN pain #10 tabs 07/06/24 Allergies Allergy/AdvReac Type Severity Reaction Status Date / Time codeine Allergy Swelling Verified 07/06/24 19:04 of Lip/Tongue/Throat Sulfa (Sulfonamide AdvReac Thrush Verified 07/06/24 19:04 Antibiotics) Review of Systems Review of Systems ROS Unobtainable: All systems reviewed & are unremarkable except as noted in HPI and below Patient History Medical History Family history of Meniere's disease Hyperlipidemia Osteopenia Leukocytopenia Neoplasm of uncertain behavior of skin Asthma Allergies Fractures Hepatitis (~1989) Hypothyroidism (acquired) (~1995) Surgical History Anesthesia S/P rotator cuff repair (~2000) History of surgery on lower extremity Family History Father Suicide Mother Breast cancer Skin cancer History of heart disease Grandfather Alzheimer's disease Grandmother History of heart disease Grandfather Stroke Family/Other Skin cancer Social History Smoking Status: Former smoker Smoking Status: Former smoker tobacco type: cigarettes alcohol intake frequency: a few times a week Alcohol type: wine Substance Use Type: does not use Exam Narrative Exam Narrative: GENERAL: Alert and oriented x three, female in moderate distress. HEENT: Head normocephalic, atraumatic, EOMI, pupils reactive, face symmetric, moist mucous membranes NECK: Supple, full range of motion CARDIOVASCULAR: Regular rate and rhythm without murmurs, rubs or gallops. RESPIRATORY: Breath sounds equal bilaterally, no wheezes rales or rhonchi. ABDOMEN: Soft, nontender. Normoactive bowel sounds all 4 quadrants. No guarding or rebound, rigidity, no mass BACK: No cervical, thoracic or lumbar vertebral point tenderness. Patient has normal range of motion. EXTREMITIES: Decreased movement of the left shoulder, patient does have some swelling no obvious ecchymosis, patient has tenderness over the proximal humerus. Patient has nontender over the elbow, forearm wrist and hand on the left. 2+ radial pulse bilaterally. Equal stud beef cattle farmer bilaterally. Normal flexion, extension abduction abduction of the fingers as well as wrist. No clubbing or edema. Neurovascularly intact. NEUROLOGICAL: Cranial nerves II through XII grossly intact. Moving all extremities SKIN: Warm, dry, no petechiae, no rashes or lesions. Initial Vital Signs Initial Vital Signs: Vital Signs Temperature 97.0 F L 07/06/24 18:58 Pulse Rate 66 07/06/24 18:58 Respiratory Rate 17 07/06/24 18:58 Blood Pressure 130/66 07/06/24 18:58 Pulse Oximetry 99 07/06/24 18:58 Oxygen Delivery Method Room Air 07/06/24 18:58 Course Orders Ordered: Discontinued Medications Acetaminophen (Acetaminophen 325 Mg Tablet) 975 mg PO NOW ONE Stop: 07/06/24 22:17 Last Admin: 07/06/24 22:19 Dose: 975 mg Documented By: PHYLICIA Ibuprofen (Ibuprofen 400 Mg Tablet) 800 mg PO NOW ONE Stop: 07/06/24 19:08 Last Admin: 07/06/24 19:11 Dose: 800 mg Documented By: NATY Ondansetron HCl (Ondansetron 4 Mg Odt) 4 mg SL NOW ONE Stop: 07/06/24 22:24 Last Admin: 07/06/24 22:25 Dose: 4 mg Documented By: PHYLICIA Oxycodone/Acetaminophen (Oxycodone/Apap 5/325 Prepack) 1 bottle MISC DIRECTED ONE Stop: 07/06/24 23:02 Last Admin: 07/06/24 23:06 Dose: 1 bottle Documented By: PHYLICIA Vital Signs Vital signs: Vital Signs - 8 hr 07/06/24 23:20 Pulse Rate 67 Respiratory Rate 17 Blood Pressure 142/75 H Pulse Oximetry 97 Oxygen Delivery Method Room Air MDM - Extremity Injury (Upper) Imaging Data Extremity x-ray #1: Radiologist's Impression: [address] [address] XRay Report Signed Patient: Elaina Madrid MR#: [id number] : 1950 Acct:[id number] Age/Sex: 73 / F Date of Service: 07/06/24 Loc: ED Accession Number: [id number] Procedure: XR shoulder LT min 2V Ordering Provider: Ruthann Osborn D.O. PROCEDURE: XR SHOULDER LT MIN 2V INDICATIONS: fall TECHNIQUE: 2 views of the shoulder were acquired. COMPARISON: None. FINDINGS: Re-identified acute, comminuted, impacted proximal humeral fracture involving the surgical neck, humeral head, and the tuberosities. There is inferior subluxation of the humeral head relative to the glenoid, likely secondary to an underlying moderate hemarthrosis. Diffuse osseous demineralization. Aortic arch calcifications. Visualized left hemithorax otherwise within normal limits. IMPRESSION: Re-identified acute, comminuted, impacted proximal humeral fracture with intra-articular extension and probable moderate hemarthrosis. Dictated by: Jorge Page M.D. on 07/06/2024 at 21:06 Approved by: Jorge Page M.D. on 07/06/2024 at 21:07 Extremity x-ray #2: Radiologist's Impression: [address] [address] XRay Report Signed Patient: Elaina Madrid MR#: [id number] : 1950 Acct:[id number] Age/Sex: 73 / F Date of Service: 07/06/24 Loc: ED Accession Number: [id number] Procedure: XR humerus LT 2V Ordering Provider: Ruthann Osborn D.O. PROCEDURE: XR HUMERUS LT 2V INDICATIONS: fall TECHNIQUE: 2 views of the humerus were acquired. COMPARISON: [facility], , XR SHOULDER 2+ VIEWS LEFT, 08/09/2023, 11:49. FINDINGS: Acute, comminuted, impacted proximal humeral surgical neck fracture with intra-articular extension to the tuberosities and humeral head. Mild inferior subluxation of the humerus relative to the glenoid, likely secondary to an underlying hemarthrosis. Evaluation of the inferior glenoid limited due to overlying fracture fragments. IMPRESSION: Acute, comminuted proximal humeral surgical neck fracture with intra-articular extension and a probable moderate hemarthrosis. Dictated by: Jorge Page M.D. on 07/06/2024 at 21:04 Approved by: Jorge Page M.D. on 07/06/2024 at 21:06 [facility] Narrative Medical decision making narrative: Humeral and shoulder x-ray shows acute comminuted proximal humeral surgical neck fracture with intra-articular extension and probable moderate hemarthrosis with mild inferior subluxation relative to glenoid likely secondary to underlying hematemesis. Patient had ibuprofen and, also had a Zofran for pain management. Placed in sling here in the department. Patient is neurovascularly intact pre and post. Patient states she thinks she has had oxycodone in the past. We will give a dose here. Patient placed in sling neurovascularly intact pre and post rings were removed. Consult with Dr. Austin, orthopedic surgery plan for sling, reviewed patient's x-ray findings fracture as well as the mild inferior subluxation. Patient is to follow up with the office for re-evaluation, call 1st thing tomorrow. Discussed findings with patient, need for follow-up. All questions answered. Discharge Plan Departure Patient Disposition: Home Clinical Impression: Humeral fracture Instructions: DI for Humeral Fracture Activity Restrictions/Additional Instructions: Follow up with Orthopedic surgery, call tomorrow to set up follow-up. You can take acetaminophen up to a 1000 mg every 6 hours and/or ibuprofen up to 600 mg every 6 hours as needed for pain. If inadequate for pain you can take 1-2 tablets of oxycodone every 6 hours as needed. This medication can make you sleepy do not drive, perform hazardous activities or make any major decisions while taking it. This medication will make you constipated please take a stool softener once to twice daily until stools are soft and regular. Prescription sent to [facility] in [place]. OK to use ice pack on the affected body part. Use for 15-20 minutes each time, for 5-6x per day. If you develop worsening pain, numbness, tingling, discoloration of the affected body part, adjust the sling, and either see your doctor for an urgent re-assessment, or return to the Emergency Department. Return to the Emergency Department for any new or worsening symptoms. Prescriptions: New oxycodone 5 mg tablet 5 mg PO QID PRN (Reason: pain) Qty: 10 0RF No Action levothyroxine [Synthroid] 150 mcg tablet 150 mcg PO DAILY Qty: 90 3RF rosuvastatin [Crestor] 5 mg tablet 5 mg PO DAILY Qty: 30 0RF hydrochlorothiazide 25 mg tablet 25 mg PO DAILY Qty: 90 3RF albuterol sulfate 90 mcg/actuation HFA aerosol inhaler 2 puff inhalation Q4-6H PRN (Reason: shortness of breath or wheezing) Qty: 6.7 1RF benzonatate 100 mg capsule 100 mg PO BID-TID PRN (Reason: cough) Qty: 21 0RF (DME) BreatheRite MDI Spacer Spacer See Rx Instructions .Route Qty: 1 0RF Rx Instructions: As directed Referrals: Josh Head MD [Primary Care Provider] - Dottie Austin MD [Physician] - Stand Alone Forms: Patient Portal/API
[2024-07-06] MEDS: ACETAMINOPHEN 325 MG TABLET 975 MG PO (22:19)
[2024-07-06] MEDS: ONDANSETRON 4 MG ODT SL (22:25)
[2024-07-06] MEDS: OXYCODONE/APAP 5/325 PREPACK 1 BOTTLE MISC (23:06)
[2024-07-06 23:20] VITALS: BP 142/75; PULSE 67; RESP 17; O2SAT 97
--- NOTE | 2024-07-06 23:21 | PC.NURSE ---
Sling applied to LEFT arm. Patient tolerated well.
== END 2024-07-06 23:55 | disposition home or self-care (01) ==
PROVIDERS: Emergency Provider Emergency Medicine; PCP Family Medicine
DX: S42.212A Unspecified displaced fracture of surgical neck of left humerus, initial encounter for closed fracture (principal); W01.0XXA Fall on same level from slipping, tripping and stumbling without subsequent striking against object, initial encounter
CPT/HCPCS: 73030; 73060; 99283

== ENCOUNTER → 2024-11-03 08:01 | Outpatient (CLI) | payer MEDICARE, OTHER, SELFPAY ==
--- NOTE | 2024-11-03 | DI.CT.S_ITS ---
PROCEDURE: CT SHOULDER LEFT WITHOUT CON INDICATIONS: Idiopathic aseptic necrosis of left humerus TECHNIQUE: Noncontrast 1 mm thick sections acquired from the acromioclavicular joint to the inferior scapula, with oblique coronal and oblique sagittal reformatting. For radiation dose reduction, the following was used: automated exposure control, adjustment of mA and/or kV according to patient size. COMPARISON: [facility], CR, XR SHOULDER LT MIN 2V, 07/06/2024, 19:15. [facility], CR, XR SHOULDER 1 VIEW LEFT, 07/10/2024, 8:36. [facility], CR, XR SHOULDER 2+ VIEWS LEFT, 08/21/2024, 8:54. FINDINGS: Image quality: Excellent. Bones: Healing comminuted fracture of the proximal humeral head and neck is again seen. The humeral shaft component is impacted and displaced anteriorly and posteriorly by up to 1 cm in each dimension. Humeral head articular surface component is rotated posteriorly. Greater tuberosity fracture fragment is mildly displaced. There is osseous bridging across the greater tuberosity fracture fragment in likely across the majority of the surgical neck fracture line. No osteonecrosis is seen. Mild inferior subluxation of the humeral head relative to the glenoid may be related to the presence of a joint effusion versus posttraumatic deformity. Degenerative spurring is seen in the glenoid rim. Moderate degenerative changes are seen at the acromioclavicular joint. Included ribs are intact. Degenerative changes are seen in the included spine. Soft tissues: Large glenohumeral effusion. No intra-articular loose body is seen. Rotator cuff musculature is normal in bulk. Overall, the tendons, ligaments, articular cartilages, and labrum are not well evaluated with CT. No significant axillary lymphadenopathy. Included portions of the lung are clear. IMPRESSION: 1. Comminuted displaced intra-articular fracture of the proximal humeral head and neck with healing changes including osseous bridging across the majority of the fracture lines with residual deformity. No osteonecrosis is seen. The majority of the femoral head articular surface is rotated posteriorly. 2. Large glenohumeral effusion. 3. Moderate acromioclavicular joint osteoarthrosis. Approved by: Quan Morataya M.D. on 11/07/2024 at 19:31
== END ==
PROVIDERS: PCP Family Medicine; Referring Provider Orthopaedic Surgery; Visit Provider Orthopaedic Surgery
DX: M87.022 Idiopathic aseptic necrosis of left humerus (principal); S42.292D Other displaced fracture of upper end of left humerus, subsequent encounter for fracture with routine healing; M19.012 Primary osteoarthritis, left shoulder; M25.412 Effusion, left shoulder; X58.XXXD Exposure to other specified factors, subsequent encounter
CPT/HCPCS: 73200

== ENCOUNTER → 2024-11-03 08:04 | Outpatient (CLI) | payer MEDICARE, OTHER, SELFPAY ==
[2024-11-03 08:46] LABS: Add Manual Diff / Slide Review NO; Basophils Absolute Auto 0 /uL (0-100); Basophils Percent Auto 0.9 % (0-2); Eosinophils Absolute Auto 200 /uL (0-450); Eosinophils Percent Auto 3.6 % (2-4); Hematocrit 41.6 % (36-46); Hemoglobin 14.2 g/dL (12.0-16.0); Lymphocytes Absolute Auto 600 /uL (1100-4500); Lymphocytes Percent Auto 11.3 % (25-40); Mean Corpuscular HGB Conc 34.2 % (30-36); Mean Corpuscular Hemoglobin 30.7 PG (26-34); Mean Corpuscular Volume 89.8 fL (80-100); Monocytes Absolute Auto 500 /uL (0-900); Neutrophils Absolute Auto 3700 /uL (1500-7000); Neutrophils Percent Auto 74.2 % (50-75); Platelet Count 203 X10^3/uL (150-400); Red Blood Cell Count 4.63 X10^6/uL (4.0-5.2); Red Cell Distribution Width 13.1 % (11.6-14.8)
[2024-11-03 08:55] LABS: Hemoglobin A1C% w Est Avg Glu 5.1 % (4.0-6.0)
[2024-11-03 08:58] LABS: Prothrombin Time 11.7 SECONDS (9.4-12.5)
[2024-11-03 09:04] LABS: Alanine Aminotransferase 21 IU/L (<35); Albumin 4.5 g/dL (3.5-5.0); Albumin Globulin Ratio 1.6 (1.0-2.8); Alkaline Phosphatase 53 U/L (38-126); Aspartate Aminotransferase 24 IU/L (14-36); BUN Creatinine Ratio 23.3 (6-22); Bilirubin Total 0.6 mg/dL (0.2-1.3); Blood Urea Nitrogen 20 mg/dL (7-17); Calcium 9.8 mg/dL (8.4-10.2); Carbon Dioxide 27 mmol/L (22-32); Chloride 102 mmol/L (98-107); Estimated Glomerular Filt Rate > 60 mL/min (>60); Globulin 2.9 g/dL (1.7-4.1); Glucose 101 mg/dL (80-110); HEMOLYSIS < 15 (0-50); Potassium 4.6 mmol/L (3.4-5.1); Sodium 134 mmol/L (137-145); Total Protein 7.4 g/dL (6.3-8.2)
[2024-11-03 09:24] LABS: Ur Creatinine Normal (Normal); Ur Specific Gravity Normal (Normal); Urine Tetrahydrocannabinol Negative (Negative)
[2024-11-03 09:25] LABS: UR Morphine/Opiate cutoff 300 Negative (Negative); Urine Amphetamines Negative (Negative); Urine Barbiturates Negative (Negative); Urine Benzodiazepines Negative (Negative); Urine Cocaine Negative (Negative); Urine MDMA Negative (Negative); Urine Methadone Negative (Negative); Urine Methamphetamines Negative (Negative); Urine Oxycodone Negative (Negative); Urine Phencyclidine Negative (Negative); Urine Tricyclic Antidepressant Negative (Negative); Urine pH Normal (Normal)
[2024-11-03 10:04] LABS: Creatinine Urine Random 71.57 mg/dL; Protein (Total) Urine Random 5 mg/dL (0-12); Protein Creatinine Ratio Urine 0.06 GRAM/24H
[2024-11-07 12:08] LABS: Cotinine Negative ng/mL (Cutoff=300)
== END ==
PROVIDERS: PCP Family Medicine
DX: Z01.818 Encounter for other preprocedural examination (principal); M79.602 Pain in left arm; R79.9 Abnormal finding of blood chemistry, unspecified; G89.29 Other chronic pain
CPT/HCPCS: 36415; 73200; 80053; 80305; 80321; 82570; 83036; 84156; 85025; 85610

== ENCOUNTER → 2025-06-15 06:54 | Outpatient (CLI) | payer MEDICARE, OTHER, SELFPAY ==
[2025-06-15 08:15] LABS: Hematocrit 39.1 % (36-46); Hemoglobin 13.8 g/dL (12.0-16.0); Lymphocytes Absolute Auto 800 /uL (1100-4500); Mean Corpuscular HGB Conc 35.3 % (30-36); Mean Corpuscular Hemoglobin 31.0 PG (26-34); Mean Corpuscular Volume 87.8 fL (80-100); Platelet Count 194 X10^3/uL (150-400)
[2025-06-15 08:48] LABS: Alanine Aminotransferase 18 IU/L (<35); Albumin 4.2 g/dL (3.5-5.0); Albumin Globulin Ratio 1.4 (1.0-2.8); Alkaline Phosphatase 57 U/L (38-126); Blood Urea Nitrogen 27 mg/dL (7-17); Calcium 9.4 mg/dL (8.4-10.2); Carbon Dioxide 23 mmol/L (22-32); Chloride 105 mmol/L (98-107); Cholesterol 193 mg/dL (140-199); Estimated Glomerular Filt Rate > 60 mL/min (>60); Globulin 3.0 g/dL (1.7-4.1); Glucose 107 mg/dL (70-99); HDL Cholesterol 62 mg/dL (40-60); HEMOLYSIS < 15 (0-50); Potassium 4.3 mmol/L (3.4-5.1); Sodium 137 mmol/L (137-145); Total Protein 7.2 g/dL (6.3-8.2); Triglycerides 85 mg/dL (35-150)
[2025-06-15 09:14] LABS: TSH w/ Reflex to FT4 2.77 uIU/mL (0.47-4.68)
[2025-06-15 09:17] LABS: Add Manual Diff / Slide Review SLIDE REVIEW
[2025-06-15 09:50] LABS: RBC Morphology Normal Morphology
== END ==
PROVIDERS: PCP Family Medicine; Referring Provider Family Medicine; Visit Provider Family Medicine
DX: E78.2 Mixed hyperlipidemia (principal); D72.810 Lymphocytopenia; E03.9 Hypothyroidism, unspecified; R63.5 Abnormal weight gain; Z96.612 Presence of left artificial shoulder joint
CPT/HCPCS: 36415; 80053; 80061; 82172; 84443; 85025